=== PATIENT | male | born 2000 | race American Indian/Alaskan Native ===

== ENCOUNTER 2019-09-21 21:50 | Emergency (ER) | payer SELFPAY ==
[2019-09-22] MEDS ORDERED: ACETAMINOPHEN 500 MG TAB PO ONE (00:31)
[2019-09-22] MEDS ORDERED: SODIUM CHLORIDE 0.9% 1000 ML 1,000 ML IV ONE (00:31)
[2019-09-22] MEDS ORDERED: ONDANSETRON 4 MG/2 ML INJ IV ONE (00:31)
--- NOTE | 2019-09-22 00:53 | XRay Report ---
CHEST 2 VIEWS INDICATION: Fever and cough. COMPARISON: None FINDINGS: Support devices: None. Heart: Within normal limits. Lungs/pleura: No acute air space or interstitial disease. No pneumothorax. Additional findings: None. IMPRESSION: 1. No acute findings. Signer Name: Luis M Phelan MD Signed: 09/22/2019 12:49 AM Workstation Name: [id number]
[2019-09-22 01:45] LABS: Hematocrit 42.3 % (35.5-45.6); Hemoglobin 14.4 gm/dl (11.8-15.2); Mean Corpuscular HGB Conc 34 % (32-34); Mean Corpuscular Volume 89 fl (84-94); Platelet Count 252 K/mm3 (140-440); Red Blood Count 4.74 M/mm3 (3.65-5.03); Red Cell Distribution Width 12.5 % (13.2-15.2)
[2019-09-22 01:55] LABS: Alanine Aminotransferase 7 units/L (7-56); BUN/Creatinine Ratio 9; Blood Urea Nitrogen 8 mg/dL (9-20); Calcium 8.9 mg/dL (8.4-10.2); Hemolysis Index 23
[2019-09-22 01:55] LABS: Bacteria,Urine 1+ /HPF (Negative); Bilirubin,Urine NEG (Negative); Blood,Urine SM (Negative); Color,Urine Yellow (Yellow); Mucus,Urine FEW /HPF
[2019-09-22] MEDS ORDERED: KETOROLAC 30 MG/1 ML INJ IV ONE (02:29)
[2019-09-22] MEDS ORDERED: cefTRIAXone/NS 1 GM/50 ML 1 GM/50 ML BAG IV ONE (02:30)
--- NOTE | 2019-09-22 03:54 | Emergency Department Report ---
ED General Adult HPI - General Chief complaint: Fever Stated complaint: FEVER PUI?: No Source: patient Mode of arrival: Ambulatory Limitations: No Limitations - History of Present Illness Initial comments: Patient is a 19-year-old -[place] male with no past medical history presents to the ED with complaint of acute onset persistent severe headache, diffuse body aches and pains, intermittent fever and chills with nausea and vomiting for the last 5 days. Patient states that in the last 24 hours he has not been able to eat anything because of worsening body aches and headache despite taking [id number] ibuprofen and Tylenol. Patient denies dizziness, syncope, chest pain, shortness of breath, sore throat, cough, abdominal pain, diarrhea, dysuria, urinary frequency and urgency or penile discharge. MD Complaint: Headache, fever and chills, body aches -: Sudden, days(s) (5) Location: head Radiation: non-radiation Severity scale (0 -10): 9 Quality: aching, sharp Consistency: constant Improves with: none Worsens with: none Associated Symptoms: denies other symptoms, fever/chills, headaches, loss of appetite, malaise, nausea/vomiting. denies: confusion, chest pain, cough, diaphoresis, rash, seizure, shortness of breath, syncope, weakness Treatments Prior to Arrival: NSAID - Related Data Previous Rx's Medication Instructions Recorded Last Taken Type Azithromycin [Zithromax Z-GARRETT] 250 mg PO DAILY #6 tablet 09/22/19 Unknown Rx Ibuprofen [Motrin] 600 mg PO Q8H PRN #24 tablet 09/22/19 Unknown Rx Ondansetron [Zofran Odt] 4 mg PO Q6HR PRN #20 tab.rapdis 09/22/19 Unknown Rx Sulfamethoxazole/Trimethoprim 1 each PO Q12H #20 tablet 09/22/19 Unknown Rx [Bactrim DS TAB] Allergies Allergy/AdvReac Type Severity Reaction Status Date / Time No Known Allergies Allergy Unverified 09/22/19 00:36 ED Review of Systems ROS: Stated complaint: FEVER Other details as noted in HPI Constitutional: chills, fever, malaise, weakness Eyes: denies: eye pain, eye discharge, vision change ENT: denies: ear pain, throat pain Respiratory: cough. denies: shortness of breath, wheezing Cardiovascular: denies: chest pain, palpitations Endocrine: no symptoms reported Gastrointestinal: nausea, vomiting. denies: abdominal pain, diarrhea Genitourinary: denies: urgency, dysuria Musculoskeletal: back pain, arthralgia, myalgia. denies: joint swelling Skin: denies: rash, lesions Neurological: headache. denies: weakness, paresthesias Psychiatric: denies: anxiety, depression Hematological/Lymphatic: denies: easy bleeding, easy bruising ED Past Medical Hx - Past Medical History Previous Medical History?: No - Surgical History Past Surgical History?: No Additional Surgical History: left leg - Social History Smoking Status: Never Smoker Substance Use Type: None - Medications Home Medications: Home Medications Medication Instructions Recorded Confirmed Last Taken Type Azithromycin [Zithromax Z-GARRETT] 250 mg PO DAILY #6 tablet 09/22/19 Unknown Rx Ibuprofen [Motrin] 600 mg PO Q8H PRN #24 tablet 09/22/19 Unknown Rx Ondansetron [Zofran Odt] 4 mg PO Q6HR PRN #20 tab.rapdis 09/22/19 Unknown Rx Sulfamethoxazole/Trimethoprim 1 each PO Q12H #20 tablet 09/22/19 Unknown Rx [Bactrim DS TAB] ED Physical Exam - General Limitations: No Limitations General appearance: alert, in no apparent distress - Head Head exam: Present: atraumatic, normocephalic, normal inspection - Eye Eye exam: Present: normal appearance, PERRL, EOMI Pupils: Present: normal accommodation - ENT ENT exam: Present: normal exam, normal orophraynx, mucous membranes moist, TM's normal bilaterally, normal external ear exam - Neck Neck exam: Present: normal inspection, full ROM. Absent: tenderness - Respiratory Respiratory exam: Present: normal lung sounds bilaterally. Absent: respiratory distress, wheezes, rales, rhonchi, chest wall tenderness, accessory muscle use, prolonged expiratory - Cardiovascular Cardiovascular Exam: Present: normal rhythm, tachycardia, normal heart sounds. Absent: systolic murmur, diastolic murmur, rubs, gallop - GI/Abdominal GI/Abdominal exam: Present: soft, normal bowel sounds. Absent: tenderness, guarding, hyperactive bowel sounds - Extremities Exam Extremities exam: Present: normal inspection, full ROM, normal capillary refill - Back Exam Back exam: Present: normal inspection, full ROM. Absent: CVA tenderness (L), muscle spasm, paraspinal tenderness, vertebral tenderness - Neurological Exam Neurological exam: Present: alert, oriented X3, CN II-XII intact, normal gait, reflexes normal - Psychiatric Psychiatric exam: Present: normal affect, normal mood - Skin Skin exam: Present: warm, dry, intact, normal color. Absent: rash ED Course Vital Signs 09/21/19 09/22/19 21:58 03:07 Temperature 103.0 F H 99.3 F Pulse Rate 103 H 76 Respiratory 20 16 Rate Blood Pressure 120/67 117/67 O2 Sat by Pulse 98 97 Oximetry ED Medical Decision Making - Lab Data Result diagrams: 09/22/19 00:53 09/22/19 00:53 - Radiology Data Radiology results: report reviewed, image reviewed Findings [facility] [address] [place] [address] XRay Report Signed Patient: MADHAVI VARGAS MR#: [id number] : 2000 Acct:[id number] Age/Sex: 19 / M ADM Date: 09/21/19 Loc: ED Attending Dr: Ordering Physician: BENJAMIN BOLAÑOS Date of Service: 09/22/19 Procedure(s): XR chest routine 2V Accession Number(s): [id number] cc: BENJAMIN BOLAÑOS Fluoro Time In Minutes: CHEST 2 VIEWS INDICATION: Fever and cough. COMPARISON: None FINDINGS: Support devices: None. Heart: Within normal limits. Lungs/pleura: No acute air space or interstitial disease. No pneumothorax. Additional findings: None. IMPRESSION: 1. No acute findings. Signer Name: Luis M Phelan MD Signed: 09/22/2019 12:49 AM Workstation Name: [id number] Transcribed By: ALESHIA Dictated By: Luis M Phelan MD Electronically Authenticated By: Luis M Phelan MD Signed Date/Time: 09/22/1949 DD/ TD/TT: - Medical Decision Making This is a 19-year-old -[place] male with no past medical history presents to the ED with complaint of acute onset persistent severe headache, diffuse body aches and pains, intermittent fever and chills with nausea and vomiting for the last 5 days. Patient states that in the last 24 hours he has not been able to eat anything because of worsening body aches and headache despite taking [id number]-[id number] ibuprofen and Tylenol. In the ED, patient is alert and oriented x3 and is not in distress but appears to be uncomfortable, is febrile and tachycardic in triage but in no acute distress. Chest x-ray showed no acute cardiopulmonary abnormalities or pneumonitis. Lab test results showed a viral syndrome pattern with acute leukopenia, hyperglycemia 112 mg/dL, acute hyponatremia of 134 mmol/L and significant urinary tract infection in urinalysis. Patient received normal saline 1 L IV bolus, was treated for fever and pain in the ED, and also received Rocephin 1 g IV x1 for UTI. On reevaluation, patient's pain is well controlled with medications, fever resolved as well as tachycardia and patient felt better. Although the patient symptoms appear to be of viral syndrome, patient was also sent home on antibiotics for UTI. Patient was advised to follow-up with his primary care physician in 7 to 10 days for reevaluation or return to the ED immediately if symptoms get worse. - Differential Diagnosis viral illness; UTI; Pneumonia; Strep pharyngitis; Covid-19 Critical care attestation.: If time is entered above; I have spent that time in minutes in the direct care of this critically ill patient, excluding procedure time. ED Disposition Clinical Impression: Nonspecific syndrome suggestive of viral illness, Acute urinary tract infection, Fever and chills Disposition: DC-01 TO HOME OR SELFCARE Is pt being admited?: No Does the pt Need Aspirin: No Condition: Stable Instructions: Urinary Tract Infection in Men (ED), Fever in Adults (ED), Viral Syndrome (ED) Additional Instructions: Your symptoms are likely due to a viral syndrome, as well as urinary tract infection. Therefore take medications, drink plenty of fluids and follow-up with your primary care physician in 3 to 5 days for reevaluation or return to the ED immediately if symptoms get worse. Prescriptions: Sulfamethoxazole/Trimethoprim [Bactrim DS TAB] 1 each PO Q12H #20 tablet Ibuprofen [Motrin] 600 mg PO Q8H PRN #24 tablet PRN Reason: Pain Azithromycin [Zithromax Z-GARRETT] 250 mg PO DAILY #6 tablet Ondansetron [Zofran Odt] 4 mg PO Q6HR PRN #20 tab.rapdis PRN Reason: Nausea Referrals: [facility] [Provider Group] - 3-5 Days Time of Disposition: 03:57 Print Language: [place] CITIZEN
[2019-09-22 05:40] LABS: Anisocytosis 1+; Basophils % (Manual) 0 % (0.0-1.8); Eosinophils % (Manual) 0 % (0.0-4.3); Platelet Estimate Consistent w Auto; Total Cells Counted 100
== END 2019-09-22 04:12 | disposition home or self-care (01) ==
LOC: ED 21:50
DX: N39.0 Urinary tract infection, site not specified (principal); R50.9 Fever, unspecified
CPT/HCPCS: 36415; 71046; 80053; 81001; 85007; 85025; 87086; 87116; 87400; 87430; 96361; 96365; 96375; 99284; J0696; J1885; J2405; J7030